=== PATIENT | female | born 1990 | race Caucasian/White ===

== ENCOUNTER 2017-08-10 17:45 | Emergency (ER) | payer BC, OTHER ==
[2017-08-10] MEDS ORDERED: IOPAMIDOL-300 100 ML VIAL IVP ONE ×2 (17:46→19:33)
--- NOTE | 2017-08-10 18:05 | ED Physician Documentation ---
PD HPI CHEST PAIN - Stated complaint Stated Complaint: CHEST PX - Chief complaint Chief Complaint: Cardiac - History obtained from History obtained from: Patient - History of Present Illness Timing - onset: Other (Mild anterior chest pain since last night, little worse today. She says it feels like she needs to pump her breasts but she is not and her breasts are nontender. She had mild shortness of breath. Traveled to [place] by air about a month and a half ago. Last menses earlier this month, she usually has irregular periods. She has long-standing type 1 diabetes maintained on an insulin pump.) Review of Systems Ten Systems: 10 systems reviewed and negative Constitutional: denies: Fever, Chills Nose: denies: Rhinorrhea / runny nose, Congestion Cardiac: reports: Chest pain / pressure. denies: Palpitations, Pedal edema, Calf pain Respiratory: reports: Dyspnea. denies: Cough, Hemoptysis, Wheezing GI: denies: Abdominal Pain PD PAST MEDICAL HISTORY - Past Medical History Past Medical History: Yes Endocrine/Autoimmune: Type 1 diabetes - Living Situation Living Situation: reports: With spouse/s.o. - Social History Does the pt smoke?: No Does the pt drink ETOH?: No Does the pt have substance abuse?: No - Family History Family history: reports: Non contributory PD ED PE NORMAL - Vitals Vital signs reviewed: Yes - General General: Alert and oriented X 3, Other (Tachycardic, anxious) - HEENT HEENT: PERRL, EOMI - Neck Neck: Supple, no meningeal sign, No bony TTP - Cardiac Cardiac: Other (Tachycardic, regular, no murmur) - Respiratory Respiratory: No respiratory distress, Clear bilaterally - Abdomen Abdomen: Soft, Non tender - Back Back: No CVA TTP, No spinal TTP - Derm Derm: Normal color, Warm and dry - Extremities Extremities: No edema, No calf tenderness / cord - Neuro Neuro: Alert and oriented X 3, Normal speech Results - Vitals Vitals: Vital Signs - 24 hr 08/10/17 08/10/17 08/10/17 17:47 19:37 20:45 Temperature 37.2 C 37.8 C H Heart Rate 112 H 117 H 104 H Respiratory 18 25 H 20 Rate Blood Pressure 147/96 H 129/79 124/74 O2 Saturation 100 100 98 Oxygen O2 Source Room air - EKG (time done) 1758 Rate: Rate (enter#) (124) Rhythm: Sinus tachycardia [place]: Normal Intervals: Normal NM QRS: Normal Ischemia: Normal ST segments Computer interpretation: Agree with computer - Labs Labs: Laboratory Tests 08/10/17 08/10/17 08/10/17 18:10 18:11 18:11 WBC 8.8 RBC 4.87 Hgb 14.0 Hct 41.9 MCV 85.9 MCH 28.8 MCHC 33.5 RDW 13.2 Plt Count 356 MPV 8.0 Neut # 5.2 Lymph # 2.9 [place] # 0.6 Eos # 0.1 Baso # 0.1 Absolute Nucleated RBC 0.00 Nucleated RBC % 0.0 Sodium 136 Potassium 3.5 Chloride 102 Carbon Dioxide 23 Anion Gap 11.0 BUN 13 Creatinine 0.6 Estimated GFR (MDRD) 122 Glucose 207 H Calcium 9.3 Total Bilirubin 1.0 AST 24 ALT 23 Alkaline Phosphatase 91 Troponin I Total Protein 8.1 Albumin 4.4 Globulin 3.7 Albumin/Globulin Ratio 1.2 Lipase 17 L Urine Color YELLOW Urine Clarity CLEAR Urine pH 6.0 Ur Specific [place] 1.025 Urine Protein NEGATIVE Urine Glucose (UA) >=1000 H Urine Ketones NEGATIVE Urine Occult Blood NEGATIVE Urine Nitrite NEGATIVE Urine Bilirubin NEGATIVE Urine Urobilinogen 0.2 (NORMAL) Ur Leukocyte Esterase NEGATIVE Ur Microscopic Review NOT INDICATED Urine Culture Comments NOT INDICATED Urine HCG, Qual NEGATIVE 08/10/17 18:11 WBC RBC Hgb Hct MCV MCH MCHC RDW Plt Count MPV Neut # Lymph # [place] # Eos # Baso # Absolute Nucleated RBC Nucleated RBC % Sodium Potassium Chloride Carbon Dioxide Anion Gap BUN Creatinine Estimated GFR (MDRD) Glucose Calcium Total Bilirubin AST ALT Alkaline Phosphatase Troponin I < 0.04 Total Protein Albumin Globulin Albumin/Globulin Ratio Lipase Urine Color Urine Clarity Urine pH Ur Specific [place] Urine Protein Urine Glucose (UA) Urine Ketones Urine Occult Blood Urine Nitrite Urine Bilirubin Urine Urobilinogen Ur Leukocyte Esterase Ur Microscopic Review Urine Culture Comments Urine HCG, Qual - Rads (name of study) CT Angio chest Radiology: EMP read contemporaneously (negative) PD MEDICAL DECISION MAKING - ED course ED course: 27-year-old woman with chest pain, seems like breast pain is much as anything else. She is not . Noted for tachycardia, this led to the consideration of pulmonary embolism, CT for same was negative. Nonischemic EKG with negative troponin. She was anxious and feeling better after Ativan. Departure - Departure Disposition: 01 Home, Self Care Clinical Impression: Chest wall pain Condition: Good Record reviewed to determine appropriate education?: Yes Instructions: ED Chest Pain NonCardiac Comments: Followup with your doctor, return if worse. Mention to [employer] OFF[employer]ER Jhoana when you see her that employee testing done last year shows your are not immune to mumps and to consider reimmunization. Discharge Date/Time: 08/10/17 20:46
[2017-08-10] MEDS ORDERED: LORazepam 2 MG/ML VIAL IVP STA (18:16)
[2017-08-10 18:22] LABS: BASOPHILS # (AUTO) 0.1 10^3/uL (0.0-0.1); BASOPHILS % (AUTO) 0.7 %; EOSINOPHILS # (AUTO) 0.1 10^3/uL (0.0-0.7); EOSINOPHILS % (AUTO) 0.9 %; LYMPHOCYTES # (AUTO) 2.9 10^3/uL (1.5-3.5); MEAN CORPUSCULAR HEMOGLOBIN 28.8 pg (27.0-31.0); MEAN CORPUSCULAR HGB CONC 33.5 g/dL (32.0-36.0); MEAN CORPUSCULAR VOLUME 85.9 fL (81.0-99.0); MONOCYTES # (AUTO) 0.6 10^3/uL (0.0-1.0); MONOCYTES % (AUTO) 6.7 %; NEUTROPHILS # (AUTO) 5.2 10^3/uL (1.5-6.6); NEUTROPHILS % (AUTO) 58.7 %; PLT - PLATELET COUNT 356 10^3/uL (130-450); RED BLOOD COUNT 4.87 10^6/uL (4.20-5.40); RED CELL DISTRIBUTION WIDTH 13.2 % (12.0-15.0); WHITE BLOOD COUNT 8.8 x10^3/uL (4.8-10.8)
[2017-08-10 18:23] LABS: BILIRUBIN,URINE NEGATIVE (NEGATIVE); GLUCOSE, URINE (UA) >=1000 mg/dL (NEGATIVE); KETONES,URINE (UA) NEGATIVE (NEGATIVE); LEUKOCYTE ESTERASE, URINE NEGATIVE (NEGATIVE); NITRITE,URINE NEGATIVE (NEGATIVE); OCCULT BLOOD,URINE NEGATIVE (NEGATIVE); PROTEIN,URINE NEGATIVE (NEGATIVE); UROBILINOGEN,URINE 0.2 (NORMAL) E.U./dL (NORMAL)
[2017-08-10 18:27] LABS: CLARITY,URINE CLEAR (CLEAR); HCG UR QUAL NEGATIVE
[2017-08-10 18:36] LABS: ALBUMIN 4.4 g/dL (3.2-5.5); ALBUMIN/GLOBULIN RATIO 1.2 (1.0-2.2); CALCIUM 9.3 mg/dL (8.5-10.3); CREATININE 0.6 mg/dL (0.4-1.0); TOTAL PROTEIN 8.1 g/dL (6.7-8.2)
[2017-08-10] MEDS ORDERED: IOPAMIDOL-300 100 ML VIAL ONE (19:09)
--- NOTE | 2017-08-10 20:20 | CT Preliminary Report ---
Exam: CT CHEST ANGIO (PE) IMPRESSION: 1. Negative exam. No pulmonary embolism. No other significant acute abnormality. [facility] SITE ID: [id number]
--- NOTE | 2017-08-10 20:20 | CT Report ---
EXAM: CT ANGIOGRAM CHEST EXAM DATE: 08/10/2017 07:34 PM. CLINICAL HISTORY: Chest pain. COMPARISON: None. TECHNIQUE: Routine helical imaging was performed through the chest in the pulmonary arterial phase. I V Contrast: 80 cc Isovue 300 IV. Reconstructions: Coronal 3-D MIP reconstructions.Sagittal and jiang l. In accordance with CT protocol optimization, one or more of the following dose reduction techniques w ere utilized for this exam: automated exposure control, adjustment of mA and/or KV based on patient s ize, or use of iterative reconstructive technique. FINDINGS: Pulmonary Arteries: Diagnostic quality: Adequate through the segmental arteries. No evidence for acute or chronic pulmona ry emboli. Main pulmonary artery is normal in size. Lungs/Pleura: No consolidation, nodules, or edema. No effusions or pneumothorax. Mediastinum: Normal. No cardiac enlargement or adenopathy. Thoracic Aorta: Unremarkable. Upper Abdomen: Unremarkable. Other: None. IMPRESSION: 1. Negative exam. No pulmonary embolism. No other significant acute abnormality. [facility] Referring Provider Line: [phone] SITE ID: [id number]
[2017-08-10 20:46] VITALS: BP 124/74
== END 2017-08-10 20:46 | disposition home or self-care (01) ==
LOC: ED 17:45
DX: R07.89 Other chest pain (principal); R00.0 Tachycardia, unspecified; E10.9 Type 1 diabetes mellitus without complications
CPT/HCPCS: 36415; 71275; 80053; 81003; 81025; 83690; 84484; 85025; 93005; 96374; 99283; 99284; J2060; Q9967; 81001; 87086

== ENCOUNTER 2017-08-12 10:30 | Outpatient (CLI) | payer OTHER | END 2017-08-12 11:00 | disposition home or self-care (01) | LOC: RT.N 10:30 | PROVIDERS: ATTEND Nurse Practitioner Gerontology | DX: R00.0 Tachycardia, unspecified (principal) | CPT/HCPCS: 93005 ==

== ENCOUNTER 2017-08-27 15:34 | Outpatient (CLI) | payer OTHER ==
--- NOTE | 2017-08-27 19:45 | XRAY Report ---
EXAM: LEFT WRIST RADIOGRAPHY EXAM DATE: 08/27/2017 04:00 PM. CLINICAL HISTORY: LEFT WRIST PAIN. COMPARISON: None. TECHNIQUE: 4 views. FINDINGS: Bones: Normal. No fractures or bone lesions. Joints: Normal. No subluxations. Soft Tissues: Normal. No soft tissue swelling. IMPRESSION: Normal wrist radiography. [facility] Referring Provider Line: [phone] SITE ID: [id number]
--- NOTE | 2017-08-27 19:45 | XRAY Preliminary Report ---
Exam: XR WRIST 4 VIEW LT IMPRESSION: Normal wrist radiography. [facility] SITE ID: [id number]
== END 2017-08-27 15:35 | disposition home or self-care (01) ==
LOC: DI.N 15:34
PROVIDERS: ATTEND Nurse Practitioner Gerontology
DX: M25.532 Pain in left wrist (principal)

== ENCOUNTER 2017-10-07 14:35 | Outpatient (CLI) | payer OTHER ==
[2017-10-07 19:17] LABS: ALBUMIN 4.3 g/dL (3.2-5.5); ALBUMIN/GLOBULIN RATIO 1.2 (1.0-2.2); BILIRUBIN,TOTAL 0.8 mg/dL (0.2-1.0); CALCIUM 9.4 mg/dL (8.5-10.3); CREATININE 0.6 mg/dL (0.4-1.0); TOTAL PROTEIN 7.9 g/dL (6.7-8.2)
== END 2017-10-07 14:36 | disposition home or self-care (01) ==
LOC: LAB.WCP 14:35
PROVIDERS: ATTEND Nurse Practitioner Gerontology
DX: E10.319 Type 1 diabetes mellitus with unspecified diabetic retinopathy without macular edema (principal)
CPT/HCPCS: 36415; 80053

== ENCOUNTER 2017-12-20 18:44 | Outpatient (CLI) | payer OTHER ==
--- NOTE | 2017-12-21 11:04 | Ultrasound Report ---
Procedure Date: 12/20/2017 Accession Number: [id number] / [id number] Procedure: US - Pelvic w/Transvaginal CPT Code: FULL RESULT: EXAM: Pelvic w/Transvaginal DATE: 12/20/2017 7:50 PM CLINICAL HISTORY: PELVIC AND PERINEAL PAIN COMPARISON: None. TECHNIQUE: Realtime transabdominal imaging performed to identify the uterus and adnexa and as an overview of other pelvic structures, followed by transvaginal imaging for better assessment of the endometrium and/or adnexa, with static image documentation. FINDINGS: Uterus: 8.0 x 5.1 x 3.8 cm, volume 80 cc. Anteverted position. Normal overall size and echotexture. Masses: None. Endometrium: 9 mm. IUD present within the endometrial canal. Cervix: Unremarkable. Right Ovary/Adnexa: 2.6 x 2.3 x 2.1 cm, volume 7 cc. Normal echotexture. Blood flow is present. No adnexal mass is seen. Left Ovary/Adnexa: 2.4 x 2.0 x 1.8 cm, volume 4 cc. Normal echotexture. Blood flow is present. No adnexal mass is seen. Free Fluid: None. Other: None. IMPRESSION: IUD present within the endometrial canal. Otherwise, normal pelvic ultrasound. [facility]
== END 2017-12-20 18:45 | disposition home or self-care (01) ==
LOC: DI 18:44
PROVIDERS: ATTEND Registered Nurse
DX: R10.2 Pelvic and perineal pain (principal); Z97.5 Presence of (intrauterine) contraceptive device
CPT/HCPCS: 76830; 76856

== ENCOUNTER 2018-03-17 07:47 | Outpatient (CLI) | payer OTHER ==
[2018-03-17 13:02] LABS: BASOPHILS % (AUTO) 0.5 %; EOSINOPHILS # (AUTO) 0.1 10^3/uL (0.0-0.7); EOSINOPHILS % (AUTO) 1.1 %; HGB - HEMOGLOBIN 14.3 g/dL (12.0-16.0); LYMPHOCYTES # (AUTO) 2.5 10^3/uL (1.5-3.5); LYMPHOCYTES % (AUTO) 32.8 %; MEAN CORPUSCULAR HEMOGLOBIN 30.6 pg (27.0-31.0); MEAN CORPUSCULAR HGB CONC 35.2 g/dL (32.0-36.0); MEAN PLATELET VOLUME 8.7 fL (7.9-10.8); MONOCYTES # (AUTO) 0.7 10^3/uL (0.0-1.0); MONOCYTES % (AUTO) 8.7 %; NEUTROPHILS # (AUTO) 4.3 10^3/uL (1.5-6.6); NEUTROPHILS % (AUTO) 56.9 %; PLT - PLATELET COUNT 330 10^3/uL (130-450); RED BLOOD COUNT 4.66 10^6/uL (4.20-5.40); RED CELL DISTRIBUTION WIDTH 13.4 % (12.0-15.0); WHITE BLOOD COUNT 7.6 x10^3/uL (4.8-10.8)
[2018-03-17 13:07] LABS: BUN - BLOOD UREA NITROGEN 15 mg/dL (6-20); CALCIUM 9.4 mg/dL (8.5-10.3); CARBON DIOXIDE - CO2 28 mmol/L (21-32); CHLORIDE 102 mmol/L (101-111); CHOL/HDL RATIO 3.4 (<4.4); CHOLESTEROL 159 mg/dL; CREATININE 0.6 mg/dL (0.4-1.0); GFR - MDRD 122 (>89); GLUCOSE 88 mg/dL (70-100); HDL CHOLESTEROL 47 mg/dL; LDL CHOLESTEROL,CALCULATED 86 mg/dL; LDL/HDL RATIO 1.8 (<4.4); SODIUM 140 mmol/L (135-145); VLDL CHOLESTEROL 26 mg/dL
[2018-03-17 13:37] LABS: HB2 TOTAL 14.8 g/dL; HEMOGLOBIN A1C 1.1 g/dL
== END 2018-03-17 07:48 | disposition home or self-care (01) ==
LOC: LAB.WCP 07:47
PROVIDERS: ATTEND Family Medicine
DX: R03.0 Elevated blood-pressure reading, without diagnosis of hypertension (principal); E10.319 Type 1 diabetes mellitus with unspecified diabetic retinopathy without macular edema; F41.9 Anxiety disorder, unspecified
CPT/HCPCS: 36415; 80048; 80061; 82043; 83036; 83721; 84443; 85025

== ENCOUNTER 2018-07-12 15:00 | Outpatient (CLI) | payer OTHER | END 2018-07-12 15:01 | disposition home or self-care (01) | LOC: LAB 15:00 | PROVIDERS: ATTEND Nurse Practitioner | DX: R05 Cough (principal) | CPT/HCPCS: 36415; 85379 ==

== ENCOUNTER 2018-07-19 09:41 | Outpatient (CLI) | payer OTHER ==
[2018-07-19 18:59] LABS: BASOPHILS % (AUTO) 0.7 %; EOSINOPHILS # (AUTO) 0.1 10^3/uL (0.0-0.7); EOSINOPHILS % (AUTO) 1.1 %; HGB - HEMOGLOBIN 14.7 g/dL (12.0-16.0); LYMPHOCYTES # (AUTO) 2.4 10^3/uL (1.5-3.5); MEAN CORPUSCULAR HEMOGLOBIN 30.7 pg (27.0-31.0); MEAN CORPUSCULAR VOLUME 90.1 fL (81.0-99.0); MEAN PLATELET VOLUME 9.2 fL (7.9-10.8); MONOCYTES # (AUTO) 0.3 10^3/uL (0.0-1.0); MONOCYTES % (AUTO) 5.5 %; NEUTROPHILS # (AUTO) 3.4 10^3/uL (1.5-6.6); NEUTROPHILS % (AUTO) 54.7 %; PLT - PLATELET COUNT 364 10^3/uL (130-450); RED CELL DISTRIBUTION WIDTH 12.8 % (12.0-15.0); WHITE BLOOD COUNT 6.2 x10^3/uL (4.8-10.8)
[2018-07-19 19:07] LABS: ALBUMIN 3.8 g/dL (3.2-5.5); BILIRUBIN,TOTAL 1.3 mg/dL (0.2-1.0); CALCIUM 9.2 mg/dL (8.5-10.3); CREATININE 0.6 mg/dL (0.4-1.0); TOTAL PROTEIN 7.6 g/dL (6.7-8.2)
[2018-07-19 19:23] LABS: HB2 TOTAL 15.6 g/dL; HEMOGLOBIN A1C 1.05 g/dL; HEMOGLOBIN A1C % 8.3 % (4.6-6.2)
== END 2018-07-19 09:42 | disposition home or self-care (01) ==
LOC: LAB.WCP 09:41
PROVIDERS: ATTEND Family Medicine
DX: R03.0 Elevated blood-pressure reading, without diagnosis of hypertension (principal); E10.319 Type 1 diabetes mellitus with unspecified diabetic retinopathy without macular edema
CPT/HCPCS: 36415; 80053; 83036; 85025

== ENCOUNTER 2018-08-09 22:56 | Outpatient (CLI) | payer OTHER ==
--- NOTE | 2018-08-09 23:53 | Ultrasound Report ---
Reason: PELVIC PAIN,ACUTE Procedure Date: 08/09/2018 Accession Number: [id number] / [id number] Procedure: US - Pelvic w/Transvaginal CPT Code: FULL RESULT: EXAM: PELVIC ULTRASOUND EXAM DATE: 08/09/2018 11:20 PM. CLINICAL HISTORY: PELVIC PAIN,ACUTE. COMPARISON: PELVIC W/TRANSVAGINAL 12/20/2017 7:02 PM. TECHNIQUE: Realtime transabdominal pelvic scan performed to identify the uterus and adnexa and as an overview of other pelvic structures, followed by transvaginal scan to provide greater detail of the uterus and adnexa, with static image documentation. FINDINGS: Uterus: 8.1 x 4.1 x 4.7 cm, volume 81.3 cc. Anteverted position. Normal overall size and echotexture. Masses: None. Endometrium: 6 mm. Normal. Cervix: Unremarkable. Right Ovary: 2.9 x 2.1 x 2.2 cm, volume 7 cc. Normal echotexture and blood flow. Left Ovary: 3 x 1.4 x 2.7 cm, volume 5.8 cc. Normal echotexture and blood flow. Free Fluid: None. Other: None. IMPRESSION: Normal pelvic ultrasound. [facility] The call report notification system was initiated by Dr. Jorge Mcghee at 11:50 PM on 08/09/2018.
== END 2018-08-09 22:57 | disposition home or self-care (01) ==
LOC: DI 22:56
PROVIDERS: ATTEND Nurse Practitioner
DX: R10.2 Pelvic and perineal pain (principal)
CPT/HCPCS: 76830; 76856

== ENCOUNTER 2018-12-07 14:38 | Outpatient (CLI) | payer OTHER ==
--- NOTE | 2018-12-07 15:21 | XRAY Report ---
Reason: PRODUCTIVE COUGH Procedure Date: 12/07/2018 Accession Number: [id number] / [id number] Procedure: XRN - Chest 2 View X-Ray CPT Code: 16129 FULL RESULT: EXAM: CHEST RADIOGRAPHY. EXAM DATE: 12/07/2018 02:54 PM. CLINICAL HISTORY: Productive cough for 1 month. COMPARISON: None. TECHNIQUE: 2 views. FINDINGS: Lungs/Pleura: No focal opacities evident. No pleural effusion. No pneumothorax. Normal volumes. Mediastinum: Heart and mediastinal contours are unremarkable. Other: None. IMPRESSION: No active airspace disease is detected. [facility]
== END 2018-12-07 14:39 | disposition home or self-care (01) ==
LOC: DI.N 14:38
PROVIDERS: ATTEND Family Medicine
DX: R05 Cough (principal)
CPT/HCPCS: 71046

== ENCOUNTER 2018-12-08 10:33 | Outpatient (CLI) | payer OTHER ==
[2018-12-08 18:55] LABS: BASOPHILS % (AUTO) 0.4 %; BILIRUBIN,URINE NEGATIVE (NEGATIVE); EOSINOPHILS # (AUTO) 0.1 10^3/uL (0.0-0.7); EOSINOPHILS % (AUTO) 1.7 %; GLUCOSE, URINE (UA) >=1000 mg/dL (NEGATIVE); KETONES,URINE (UA) NEGATIVE (NEGATIVE); LEUKOCYTE ESTERASE, URINE NEGATIVE (NEGATIVE); LYMPHOCYTES # (AUTO) 2.3 10^3/uL (1.5-3.5); LYMPHOCYTES % (AUTO) 29.3 %; MEAN CORPUSCULAR HEMOGLOBIN 30.5 pg (27.0-31.0); MEAN CORPUSCULAR HGB CONC 33.2 g/dL (32.0-36.0); MEAN CORPUSCULAR VOLUME 91.9 fL (81.0-99.0); MEAN PLATELET VOLUME 10.8 fL (7.9-10.8); MONOCYTES # (AUTO) 0.5 10^3/uL (0.0-1.0); NEUTROPHILS # (AUTO) 4.9 10^3/uL (1.5-6.6); NEUTROPHILS % (AUTO) 62.3 %; NITRITE,URINE NEGATIVE (NEGATIVE); OCCULT BLOOD,URINE NEGATIVE (NEGATIVE); PH,URINE 5.5 PH (5.0-7.5); PLT - PLATELET COUNT 369 10^3/uL (130-450); PROTEIN,URINE NEGATIVE (NEGATIVE); RED BLOOD COUNT 4.59 10^6/uL (4.20-5.40); RED CELL DISTRIBUTION WIDTH 12.8 % (12.0-15.0); UROBILINOGEN,URINE 0.2 (NORMAL) E.U./dL (NORMAL); WHITE BLOOD COUNT 7.9 x10^3/uL (4.8-10.8)
[2018-12-08 19:03] LABS: CLARITY,URINE CLEAR (CLEAR)
[2018-12-08 19:08] LABS: ALBUMIN 3.5 g/dL (3.2-5.5); ALBUMIN/GLOBULIN RATIO 0.9 (1.0-2.2); BILIRUBIN,TOTAL 0.5 mg/dL (0.2-1.0); CALCIUM 9.2 mg/dL (8.5-10.3); CREATININE 0.7 mg/dL (0.4-1.0); TOTAL PROTEIN 7.2 g/dL (6.7-8.2)
[2018-12-08 19:38] LABS: HB2 TOTAL 14.5 g/dL; HEMOGLOBIN A1C 1.14 g/dL; HEMOGLOBIN A1C % 9.3 % (4.6-6.2)
== END 2018-12-08 23:59 | disposition home or self-care (01) ==
LOC: LAB.WCP 10:33
PROVIDERS: ATTEND Family Medicine
DX: E10.319 Type 1 diabetes mellitus with unspecified diabetic retinopathy without macular edema (principal)
CPT/HCPCS: 36415; 80053; 81001; 81003; 83036; 85025; 87086

== ENCOUNTER 2019-02-15 15:23 | Outpatient (CLI) | payer OTHER | END 2019-02-15 15:24 | disposition critical access hospital (66) | LOC: EMS 15:23 | PROVIDERS: ATTEND Surgery | DX: R07.89 Other chest pain (principal) | CPT/HCPCS: A0425; A0427 ==

== ENCOUNTER 2019-02-15 15:43 | Emergency (ER) | payer OTHER ==
--- NOTE | 2019-02-15 16:00 | ED Physician Documentation ---
History of Present Illness - Stated complaint Stated Complaint: CHEST PRESSURE - Chief complaint Chief Complaint: Cardiac - Additonal information Additional information: This is a 28-year-old female with a history of type 1 diabetes who presents with chest discomfort. Over the past several days patient has had some discomfort which she describes as an achiness over her upper chest which is worse when she twists or when she lifts up her child. She denies any preceding trauma or obvious inciting event. Her breathing feels normal to her, she denies shortness of breath. No cough, fever, blood in her sputum. No leg swelling, or history of blood clots. She has been diagnosed with an tachycardia of unclear cause, she takes propanolol for this. Review of Systems Constitutional: denies: Fever Cardiac: reports: Chest pain / pressure Respiratory: denies: Dyspnea GI: denies: Abdominal Pain Skin: denies: Rash Neurologic: denies: Generalized weakness Endocrine: reports: Other (T1DM) PD PAST MEDICAL HISTORY - Past Medical History Respiratory: Asthma Endocrine/Autoimmune: Type 1 diabetes Psych: Anxiety - Present Medications Home Medications: Ambulatory Orders Medication Instructions Recorded Confirmed Albuterol Sulfate [Proair 90 mcg IH Q4HR PRN 02/15/19 02/15/19 Respiclick] Codeine Phosphate/Guaifenesin 5 ml PO Q4HR PRN 02/15/19 02/15/19 [Guaifen-Codeine 100-10 mg/5 ml] Etonogestrel/Ethinyl Estradiol 1 each VG UD 02/15/19 02/15/19 [Nuvaring Vaginal Ring] Fluticasone 44 Mcg [Flovent] 1 puffs INH BID 02/15/19 02/15/19 Fluticasone Propionate [Flovent 50 mcg IH DAILY 02/15/19 02/15/19 Diskus] Glucagon,Human Recombinant 1 mg IJ PRN PRN 02/15/19 02/15/19 [Glucagon Emergency Kit] Insulin Lispro [Humalog] 80 - 100 unit SUBQ DAILY 02/15/19 02/15/19 Propranolol [Inderal] 20 mg PO DAILY 02/15/19 02/15/19 Venlafaxine [Effexor] 37.5 mg PO BID 02/15/19 02/15/19 raNITIdine [Zantac] 150 mg PO BID PRN 02/15/19 02/15/19 - Allergies Allergies/Adverse Reactions: Allergies Allergy/AdvReac Type Severity Reaction Status Date / Time No Known Drug Allergies Allergy Verified 02/15/19 15:49 - Social History Does the pt smoke?: No Smoking Status: Never smoker Does the pt drink ETOH?: No Does the pt have substance abuse?: No PD ED PE NORMAL - Vitals Vital signs reviewed: Yes - General General: Alert and oriented X 3, No acute distress - HEENT HEENT: PERRL - Neck Neck: Supple, no meningeal sign - Cardiac Cardiac: RRR, No murmur - Respiratory Respiratory: Clear bilaterally - Abdomen Abdomen: Normal bowel sounds, Soft, Non tender, Non distended - Derm Derm: Warm and dry - Extremities Extremities: No deformity - Neuro Neuro: Alert and oriented X 3 - Psych Psych: Normal mood, Normal affect Results - Vitals Vitals: Oxygen O2 Source Room air - EKG (time done) 15:50 Other comments: Other comments (Rate 87, rhythm sinus, axis normal, there is no ST segment elevation or depression, no abnormal T wave inversions. Intervals within normal limits.) - Labs Labs: Laboratory Tests 02/15/19 02/15/19 02/15/19 15:59 15:59 15:59 WBC 6.5 RBC 4.80 Hgb 14.7 Hct 41.3 MCV 86.0 MCH 30.6 MCHC 35.6 RDW 11.6 L Plt Count 327 MPV 10.3 Neut # (Auto) 3.6 Lymph # (Auto) 2.4 [place] # (Auto) 0.4 Eos # (Auto) 0.1 Baso # (Auto) 0.0 Absolute Nucleated RBC 0.00 Nucleated RBC % 0.0 Sodium 135 Potassium 3.8 Chloride 99 L Carbon Dioxide 28 Anion Gap 8.0 BUN 8 Creatinine 0.8 Estimated GFR (MDRD) 87 L Glucose 414 H Calcium 9.5 Total Bilirubin 0.9 AST 25 ALT 24 Alkaline Phosphatase 89 Troponin I High Sens 2.5 Total Protein 7.8 Albumin 3.9 Globulin 3.9 Albumin/Globulin Ratio 1.0 Lipase 30 PD MEDICAL DECISION MAKING - ED course Complexity details: considered differential (ACS, PE, pneumothorax, pneumonia, MSK pain, GERD) ED course: Pt is well appearing with unremarkable vital signs. She has no signs of DVT, and normal HR and oxygen saturation. She has no risk factors for PE other than use of nuvaring, which is a low dose of estrogen. Her pain also resolves intermittently, making PE highly unlikely. Her EKG is unremarkable, and Troponin is negative, ACS extremely unlikely. Her XR and labs are unrevealing other than she has hyperglycemia consistent with her diabetes. I discussed our results, that I do not see an emergent cause of her chest pain, and she should follow up closely with her PCP. I discussed strict return precuations. Pt agrees and was discharged home. Departure - Departure Disposition: Home, Self Care Clinical Impression: Chest pain Qualifiers: Chest pain type: unspecified Qualified Code(s): R07.9 - Chest pain, unspecified Condition: Good Instructions: ED Chest Pain Atypical Unkn Cause Follow-Up: Your,PCP [Other] - Within 1 week Comments: We do not see an obvious cause of your chest pain on our work-up today. You may take Tylenol and ibuprofen for your discomfort, and please follow-up with your primary care provider. If you develop new or worsening symptoms please return to the emergency department for further evaluation. Your sugar was quite high today, please check this frequently over the next several days and correct it ac cording to your home insulin regimen. Discharge Date/Time: 02/15/19 17:38
[2019-02-15 16:08] LABS: BASOPHILS % (AUTO) 0.3 %; EOSINOPHILS # (AUTO) 0.1 10^3/uL (0.0-0.7); EOSINOPHILS % (AUTO) 1.4 %; HGB - HEMOGLOBIN 14.7 g/dL (12.0-16.0); LYMPHOCYTES # (AUTO) 2.4 10^3/uL (1.5-3.5); LYMPHOCYTES % (AUTO) 36.4 %; MEAN CORPUSCULAR HEMOGLOBIN 30.6 pg (27.0-31.0); MEAN CORPUSCULAR HGB CONC 35.6 g/dL (32.0-36.0); MEAN PLATELET VOLUME 10.3 fL (7.9-10.8); MONOCYTES # (AUTO) 0.4 10^3/uL (0.0-1.0); MONOCYTES % (AUTO) 6.6 %; NEUTROPHILS # (AUTO) 3.6 10^3/uL (1.5-6.6); NEUTROPHILS % (AUTO) 55.1 %; PLT - PLATELET COUNT 327 10^3/uL (130-450); RED CELL DISTRIBUTION WIDTH 11.6 % (12.0-15.0); WHITE BLOOD COUNT 6.5 x10^3/uL (4.8-10.8)
[2019-02-15 16:17] LABS: ALBUMIN 3.9 g/dL (3.2-5.5); BILIRUBIN,TOTAL 0.9 mg/dL (0.2-1.0); CALCIUM 9.5 mg/dL (8.5-10.3); CREATININE 0.8 mg/dL (0.4-1.0); TOTAL PROTEIN 7.8 g/dL (6.7-8.2)
--- NOTE | 2019-02-15 16:24 | XRAY Report ---
Reason: CP Procedure Date: 02/15/2019 Accession Number: [id number] / [id number] Procedure: XR - Chest 1 View X-Ray CPT Code: 99710 FULL RESULT: EXAM: CHEST RADIOGRAPHY EXAM DATE: 02/15/2019 04:15 PM. CLINICAL HISTORY: CP. COMPARISON: CHEST 2 VIEW 12/07/2018 2:58 PM. TECHNIQUE: 1 view. FINDINGS: Lungs/Pleura: No focal opacities evident. No pleural effusion. No pneumothorax. Mediastinum: Within exam limitations, the cardiomediastinal contour is normal. Other: None. IMPRESSION: No acute cardiopulmonary process. [facility]
[2019-02-15 17:23] VITALS: BP 126/81
== END 2019-02-15 17:38 | disposition home or self-care (01) ==
LOC: EDUNIT# → EDBD → ED 15:43
DX: R07.9 Chest pain, unspecified (principal); E10.65 Type 1 diabetes mellitus with hyperglycemia
CPT/HCPCS: 36415; 71045; 80053; 83690; 84484; 85025; 93005; 99284

== ENCOUNTER 2019-04-28 17:35 | Outpatient (CLI) | payer OTHER ==
[2019-04-28 18:57] LABS: BASOPHILS % (AUTO) 0.1 %; EOSINOPHILS # (AUTO) 0.1 10^3/uL (0.0-0.7); EOSINOPHILS % (AUTO) 1.7 %; HGB - HEMOGLOBIN 13.1 g/dL (12.0-16.0); LYMPHOCYTES # (AUTO) 2.6 10^3/uL (1.5-3.5); LYMPHOCYTES % (AUTO) 37.5 %; MEAN CORPUSCULAR HEMOGLOBIN 29.2 pg (27.0-31.0); MEAN CORPUSCULAR HGB CONC 33.3 g/dL (32.0-36.0); MEAN CORPUSCULAR VOLUME 87.7 fL (81.0-99.0); MEAN PLATELET VOLUME 10.4 fL (7.9-10.8); MONOCYTES # (AUTO) 0.5 10^3/uL (0.0-1.0); MONOCYTES % (AUTO) 7.6 %; NEUTROPHILS # (AUTO) 3.7 10^3/uL (1.5-6.6); PLT - PLATELET COUNT 368 10^3/uL (130-450); RED BLOOD COUNT 4.48 10^6/uL (4.20-5.40); RED CELL DISTRIBUTION WIDTH 12.3 % (12.0-15.0); WHITE BLOOD COUNT 6.9 x10^3/uL (4.8-10.8)
[2019-04-28 19:11] LABS: ALBUMIN 4.2 g/dL (3.2-5.5); ALBUMIN/GLOBULIN RATIO 1.2 (1.0-2.2); BILIRUBIN,TOTAL 0.6 mg/dL (0.2-1.0); CALCIUM 9.1 mg/dL (8.5-10.3); CREATININE 0.6 mg/dL (0.4-1.0); TOTAL PROTEIN 7.6 g/dL (6.7-8.2)
== END 2019-04-28 17:36 | disposition home or self-care (01) ==
LOC: LAB.R 17:35
PROVIDERS: ATTEND Physician Assistant
DX: E10.319 Type 1 diabetes mellitus with unspecified diabetic retinopathy without macular edema (principal)
CPT/HCPCS: 80053; 85025

== ENCOUNTER 2019-05-29 08:00 | Outpatient (CLI) | payer OTHER | END 2019-05-29 23:59 | disposition home or self-care (01) | LOC: LAB.WCP 08:00 | PROVIDERS: ATTEND Physician Assistant | DX: N91.2 Amenorrhea, unspecified (principal) | CPT/HCPCS: 36415; 84702 ==

== ENCOUNTER 2019-07-25 08:00 | Outpatient (CLI) | payer OTHER ==
[2019-07-25 19:23] LABS: CALCIUM 9.2 mg/dL (8.5-10.3); CREATININE 0.6 mg/dL (0.4-1.0)
[2019-07-25 19:30] LABS: HB2 TOTAL 13.2 g/dL; HEMOGLOBIN A1C 0.83 g/dL; HEMOGLOBIN A1C % 7.9 % (4.6-6.2)
== END 2019-07-25 23:59 | disposition home or self-care (01) ==
LOC: LAB.WCP 08:00
PROVIDERS: ATTEND Physician Assistant
DX: E10.319 Type 1 diabetes mellitus with unspecified diabetic retinopathy without macular edema (principal)
CPT/HCPCS: 36415; 80048; 83036

== ENCOUNTER 2020-02-27 14:02 | Outpatient (CLI) | payer OTHER ==
[2020-02-27 19:29] LABS: HCG,QUALITATIVE BLOOD POSITIVE
== END 2020-02-27 23:59 ==
LOC: LAB.WCP 14:02
PROVIDERS: ATTEND Nurse Practitioner Family
DX: N91.2 Amenorrhea, unspecified (principal)
CPT/HCPCS: 36415; 84703

== ENCOUNTER 2020-03-08 16:51 | Outpatient (CLI) | payer OTHER ==
[2020-03-08 17:13] LABS: MUDS CUTOFF CONCENTRATIONS CUTOFF CONC BELOW:
[2020-03-08 17:26] LABS: BILIRUBIN,URINE NEGATIVE (NEGATIVE); GLUCOSE, URINE (UA) >=1000 mg/dL (NEGATIVE); KETONES,URINE (UA) NEGATIVE (NEGATIVE); LEUKOCYTE ESTERASE, URINE NEGATIVE (NEGATIVE); NITRITE,URINE NEGATIVE (NEGATIVE); OCCULT BLOOD,URINE NEGATIVE (NEGATIVE); PH,URINE 5.5 PH (5.0-7.5); PROTEIN,URINE NEGATIVE (NEGATIVE); UROBILINOGEN,URINE 0.2 (NORMAL) E.U./dL (NORMAL)
[2020-03-08 17:42] LABS: CLARITY,URINE CLEAR (CLEAR)
[2020-03-08 17:54] LABS: AMPHETAMINE SCREEN,URINE NEGATIVE (NEGATIVE); BENZODIAZEPINES SCREEN, URINE NEGATIVE (NEGATIVE); COCAINE SCREEN URINE NEGATIVE (NEGATIVE); METHADONE SCREEN, URINE NEGATIVE (NEGATIVE); METHAMPHETAMINES SCREEN, URINE NEGATIVE (NEGATIVE); OPIATE SCREEN, URINE NEGATIVE (NEGATIVE); OXYCODONE SCREEN, URINE NEGATIVE (NEGATIVE); PROPOXYPHENE SCREEN, URINE NEGATIVE (NEGATIVE); TRICYCLIC ANTIDEPRESSANT,URINE NEGATIVE (NEGATIVE)
[2020-03-08 18:06] LABS: BACTERIA,URINE Rare /HPF (None Seen); RBC,URINE 0-5 /HPF (0-5); SQUAMOUS EPITHELIAL CELL,UR MOD Squamous (<= Few)
== END 2020-03-08 23:59 | disposition home or self-care (01) ==
LOC: LAB.R 16:51
PROVIDERS: ATTEND Obstetrics & Gynecology
DX: Z36.89 Encounter for other specified antenatal screening (principal)
CPT/HCPCS: 80306; 81001; 87086

== ENCOUNTER 2020-03-17 14:38 | Outpatient (CLI) | payer OTHER ==
--- NOTE | 2020-03-17 18:40 | Ultrasound Report ---
PROCEDURE: OB First Trimester INDICATIONS: POSITIVE TEST OUTSIDE/PRIOR DATING DATA: Last menstrual period (LMP): 01/27/2020. LMP-based estimated date of delivery (TANYA): 11/05/2020. Transvaginal evaluation performed. TECHNIQUE: Real-time scanning was performed of the fetus and maternal pelvic organs, with image documentation. Transvaginal evaluation performed. COMPARISON: None FINDINGS: There is an intrauterine gestational sac with mean sac diameter of 1.9 cm. There is a pole with in the gestational sac with a crown-rump length of 0.7 cm which corresponds to an estimated gestation al age of 6 weeks 4 days. heart rate of 140 bpm. Yolk sac is also present. Along the inferior a spect of the gestational sac, there is a very small focus of subchorionic hemorrhage measuring 6 x 5 x 3 mm. Measurement variability in dating: +/- 4 weeks by LMP, +/- 7 days by mean sac diameter (use before 6 weeks gestation if crown-rump length not able to be measured), +/- 5 days by crown-rump length (6-12 weeks gestation). Maternal organs: Ovaries are present. Right ovary measures 2.6 x 2.3 x 2.6 cm. Left ovary measures 2 .5 x 1.5 x 1.4 cm. Normal Doppler appearance. A 1.9 cm corpus luteum follicle is seen in the right ov malu. There is a simple 1.4 cm right adnexal cyst, requiring no follow-up surveillance imaging. IMPRESSION: Single living intrauterine with heart rate of 140 bpm. Malcolm-rump length corresponds with estimated gestational age of 6 weeks 4 days. Very small subchorionic hemorrhage. Reviewed by: Sav Bolanos on 03/17/2020 5:39 PM KEISHA Approved by: Sav Bolanos on 03/17/2020 5:39 PM KEISHA Station ID: [id number]
== END 2020-03-17 14:39 | disposition home or self-care (01) ==
LOC: DI 14:38
PROVIDERS: ATTEND Obstetrics & Gynecology
DX: Z32.01 Encounter for pregnancy test, result positive (principal)
CPT/HCPCS: 76801; 76817

== ENCOUNTER 2020-08-08 09:15 | Outpatient (CLI) | payer OTHER | END 2020-08-08 09:16 | disposition short-term general hospital (02) | LOC: EMS 09:15 | DX: O99.891 Other specified diseases and conditions complicating pregnancy (principal); R10.30 Lower abdominal pain, unspecified; R20.2 Paresthesia of skin; O24.912 Unspecified diabetes mellitus in pregnancy, second trimester; Z3A.27 27 weeks gestation of pregnancy | CPT/HCPCS: A0425; A0429 ==